=== PATIENT | female | born 1990 | race Caucasian/White ===

== ENCOUNTER 2017-10-05 18:25 | Emergency (ER) | payer OTHER ==
[~2017-10-05] VITALS: Ht 177.8 cm; Wt 67.0 kg
[2017-10-05 21:12] LABS: APPEARANCE CLEAR ((CLEAR)); BILIRUBIN NEGATIVE; BLOOD NEGATIVE; COLOR YELLOW ((YELLOW)); GLUCOSE (STRIP) NEGATIVE; KETONES 20; LEUKOCYTES NEGATIVE; NITRITE NEGATIVE; PROTEIN (STRIP) NEGATIVE
[2017-10-05] MEDS ORDERED: NAPROSYN500 MG PO (21:23)
[2017-10-05] MEDS ORDERED: REGLAN10 MG PO (21:23)
[2017-10-05 21:44] VITALS: BP 136/89
== END 2017-10-05 21:46 | disposition home or self-care (01) ==
LOC: EME 18:25
PROVIDERS: Physician Assistant
DX: G43.909 Migraine, unspecified, not intractable, without status migrainosus (principal)
CPT/HCPCS: 81003; 99281; 99285; J1200; J1885; J2765; J7030